=== PATIENT | male | born 1965 | race Caucasian/White ===

== ENCOUNTER 2020-05-25 03:45 | Emergency (ER) | payer MEDICAID, OTHER ==
[2020-05-25] MEDS ORDERED: Aspirin 81 MG Tab.Chew PO ONE (04:02)
[2020-05-25] MEDS ORDERED: Aspirin 81 MG Tab.Chew ONE (04:03)
[2020-05-25] MEDS ORDERED: Metoprolol Tartrate 50 MG Tab PO ONE (04:03)
--- NOTE | 2020-05-25 04:03 | EDM.PDOC ---
ED HPI GENERAL MEDICAL PROBLEM - General Chief Complaint: Chest Pain Stated Complaint: CHEST/JAW PAIN Time Seen by Provider: 05/25/20 04:01 Source of Information: Reports: Patient, RN History Limitations: Reports: Other (no old records) - History of Present Illness INITIAL COMMENTS - FREE TEXT/NARRATIVE: 54 yo male here with almost 7 hrs of chest pain associated with some nausea and some shortness of breath. He has no personal hx of CAD, but does have a pHx of hyperlipidemia and AODM. FHx is + for heart dz. Admits he had been noncompliant with his statin until his last doctor's office. He quit smoking over 30 yrs ago. Some radiation to his proximal L arm. Is here with his . He denies a pHx of HTN. He thought his sxs' were due to indigestion, but didn't take any antacids. He did take some ibuprofen. Onset: Gradual Onset Date: 05/24/20 Duration: Hour(s):, Getting Worse Location: Reports: Chest, Upper Extremity, Left Quality: Reports: Burning Severity: Moderate Improves with: Reports: None Worsens with: Reports: Other (unknown) Context: Reports: Other (See HPI) Associated Symptoms: Reports: Chest Pain, Diaphoresis, Nausea/Vomiting, Shortness of Breath. 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 Denies: Dyspnea on Exertion, Edema Endocrine: Reports: No Symptoms GI/Abdominal: Reports: Nausea. Denies: Abdominal Pain : Reports: No Symptoms Musculoskeletal: Reports: No Symptoms Skin: Reports: No Symptoms Neurological: Reports: No Symptoms ED EXAM, GENERAL - Physical Exam Exam: See Below Exam Limited By: No Limitations General Appearance: Alert, WD/WN, No Apparent Distress Eye Exam: Bilateral Eye: Normal Inspection, PERRL Ears: Normal External Exam, Normal Canal, Hearing Grossly Normal, Normal TMs Nose: Normal Inspection, No Blood Throat/Mouth: Normal Inspection, Normal Lips, Normal Oropharynx, Normal Voice, No Airway Compromise Head: Atraumatic, Normocephalic Neck: Normal Inspection Respiratory/Chest: No Respiratory Distress, Lungs Clear, Normal Breath Sounds, No Accessory Muscle Use Cardiovascular: Regular Rate, Rhythm, No Edema GI/Abdominal: Normal Bowel Sounds, Soft, Non-Tender, No Distention Back Exam: Normal Inspection Extremities: Normal Inspection, Normal Range of Motion, Non-Tender, No Pedal Edema Neurological: Alert, Oriented, CN II-XII Intact, Normal Cognition, No Motor/Sensory Deficits Psychiatric: Normal Affect, Normal Mood Skin Exam: Warm, Dry, Intact, Normal Color, No Rash #1 Interpretation EKG Date: 05/25/20 Time: 03:50 Rhythm: NSR Rate (Beats/Min): 90 [place]: Normal P-Wave: Present QRS: LBBB ST-T: Depressed (II, III, AVF slight depression) QT: Normal Comparison: NA - No Prior EKG #2 Interpretation EKG Date: 05/25/20 Time: 04:30 Rhythm: NSR Rate (Beats/Min): 85 [place]: Normal P-Wave: Present QRS: LBBB ST-T: Normal QT: Normal Comparison: No Change Course - Vital Signs Text/Narrative:: Accepted in transfer by Dr. Jensen @ [facility] @ [id number] Last Recorded V/S: Last Vital Signs Temp 36.6 C 05/25/20 03:51 Pulse 80 05/25/20 04:27 Resp 16 05/25/20 04:27 BP 125/72 05/25/20 04:27 Pulse Ox 96 05/25/20 04:27 - Orders/Labs/Meds Orders: Active Orders 24 hr Category Date Time Status Cardiac Monitoring [RC] .As Directed Care 05/25/20 04:00 Active EKG Documentation Completion [RC] ASDIRECTED Care 05/25/20 04:00 Active EKG Documentation Completion [RC] ASDIRECTED Care 05/25/20 04:30 Active UA W/MICROSCOPIC [URIN] Stat Lab 05/25/20 04:48 Ordered Dextrose 50% in Water Med 05/25/20 04:50 Ordered 50 ml IVPUSH ASDIRECTED PRN Glucagon,Human Recombinant [GlucaGen] Med 05/25/20 04:50 Ordered 1 mg IM ASDIRECTED PRN Heparin Sodium/D5W [Heparin 25,000 Units in D5W 500 ML] Med 05/25/20 04:45 Active 25,000 units in 500 ml IV TITRATE Insulin Regular, Human [HumuLIN R] Med 05/25/20 04:50 Once 12 unit SUBCUT ONETIME ONE Sodium Chloride 0.9% [Saline Flush] Med 05/25/20 04:29 Active 10 ml FLUSH ASDIRECTED PRN Saline Lock Insert [OM.PC] Routine Oth 05/25/20 04:29 Ordered EKG 12 Lead [EK] Routine Ther 05/25/20 04:00 Ordered EKG 12 Lead [EK] Routine Ther 05/25/20 04:29 Ordered Medication Orders Heparin Sodium/Dextrose (Heparin 25,000 Units In D5w 500 Ml) 25,000 units in 500 mls @ 20 mls/hr IV TITRATE TOMA Sodium Chloride (Saline Flush) 10 ml FLUSH ASDIRECTED PRN PRN Reason: Keep Vein Open Last Admin: 05/25/20 04:41 Dose: 10 ml Documented by: SHARYN Labs: Laboratory Tests 05/25/20 05/25/20 Range/Units 04:09 04:09 WBC 10.5 (4.5-11.0) K/uL RBC 5.47 (4.30-5.90) M/uL Hgb 15.5 H (12.0-15.0) g/dL Hct 44.8 (40.0-54.0) % MCV 82 (80-98) fL MCH 28 (27-31) pg MCHC 35 (32-36) % Plt Count 199 (150-400) K/uL Sodium 127 L (140-148) mmol/L Potassium 4.4 (3.6-5.2) mmol/L Chloride 94 L (100-108) mmol/L Carbon Dioxide 24 (21-32) mmol/L Anion Gap 13.4 (5.0-14.0) mmol/L BUN 16 (7-18) mg/dL Creatinine 1.4 H (0.8-1.3) mg/dL Est Cr Clr Drug Dosing 57.05 mL/min Estimated GFR (MDRD) 53 L (>60) Glucose 346 H (74-106) mg/dL Calcium 8.5 (8.5-10.1) mg/dL Troponin I 0.815 H* (0.000-0.056) ng/mL Meds: Medications Generic Name Dose Route Start Last Admin Trade Name Freq PRN Reason Stop Dose Admin Heparin Sodium/Dextrose 25,000 units in 500 mls @ 20 mls/hr 05/25/20 04:45 Heparin 25,000 Units In D5w 500 Ml IV TITRATE TOMA 1,000 UNITS/HR Sodium Chloride 10 ml 05/25/20 04:29 05/25/20 04:41 Saline Flush FLUSH 10 ml ASDIRECTED PRN Administration Keep Vein Open Discontinued Medications Generic Name Dose Route Start Last Admin Trade Name Freq PRN Reason Stop Dose Admin Aspirin 324 mg 05/25/20 04:02 05/25/20 04:05 Aspirin PO 05/25/20 04:03 324 mg ONETIME ONE Administration Aspirin Confirm 05/25/20 04:03 05/25/20 04:12 Aspirin Administered 05/25/20 04:04 Not Given Dose 324 mg .ROUTE .STK-MED ONE Heparin Sodium (Porcine) 4,000 units 05/25/20 04:40 Heparin Sodium IVPUSH 05/25/20 04:41 ONETIME ONE Metoprolol Tartrate 50 mg 05/25/20 04:03 05/25/20 04:06 Lopressor PO 05/25/20 04:04 50 mg ONETIME ONE Administration Nitroglycerin 0.4 mg 05/25/20 04:08 05/25/20 04:13 Nitrostat SL 05/25/20 04:09 0.4 mg ONETIME ONE Administration Nitroglycerin 0.4 mg 05/25/20 04:22 05/25/20 04:24 Nitrostat SL 05/25/20 04:23 0.4 mg ONETIME ONE Administration Nitroglycerin 1 gm 05/25/20 04:30 05/25/20 04:41 Nitro-Bid 2% TOP 05/25/20 04:31 1 gm ONETIME ONE Administration Ticagrelor 180 mg 05/25/20 04:27 05/25/20 04:33 Brilinta PO 05/25/20 04:28 180 mg ONETIME ONE Administration - Re-Assessments/Exams Free Text/Narrative Re-Assessment/Exam: 05/25/20 04:30 pain reduced after first NTG, now almost gone after 2nd NTG. Departure - Departure Time of Disposition: 05:15 Disposition: DC/Tfer to Acute Hospital 02 Reason for Transfer *Q: Other Condition: Serious Clinical Impression: Non-STEMI (non-ST elevated myocardial infarction), Elevated blood sugar Referrals: Grupo Telles MD [Primary Care Provider] - Forms: ED Department Discharge Sepsis Event Note (ED) - Evaluation Sepsis Screening Result: No Definite Risk - Focused Exam Vital Signs: Vital Signs Temp Pulse Pulse Resp BP BP Pulse Ox 05/25/20 04:27 80 16 125/72 96 05/25/20 04:24 127/79 05/25/20 04:17 88 19 127/79 96 05/25/20 04:16 84 20 138/73 98 05/25/20 04:13 149/76 H 05/25/20 04:06 93 149/76 H 05/25/20 03:51 36.6 C 88 14 149/76 H 100 - My Orders Last 24 Hours: My Active Orders 05/25/20 04:00 Cardiac Monitoring [RC] .As Directed EKG Documentation Completion [RC] ASDIRECTED EKG 12 Lead [EK] Routine 05/25/20 04:29 Sodium Chloride 0.9% [Saline Flush] 10 ml FLUSH ASDIRECTED PRN Saline Lock Insert [OM.PC] Routine EKG 12 Lead [EK] Routine 05/25/20 04:30 EKG Documentation Completion [RC] ASDIRECTED 05/25/20 04:45 Heparin Sodium/D5W [Heparin 25,000 Units in D5W 500 ML] 25,000 units in 500 ml IV TITRATE 05/25/20 04:48 UA W/MICROSCOPIC [URIN] Stat 05/25/20 04:50 Dextrose 50% in Water 50 ml IVPUSH ASDIRECTED PRN Glucagon,Human Recombinant [GlucaGen] 1 mg IM ASDIRECTED PRN Insulin Regular, Human [HumuLIN R] 12 unit SUBCUT ONETIME ONE - Assessment/Plan Last 24 Hours: My Active Orders 05/25/20 04:00 Cardiac Monitoring [RC] .As Directed EKG Documentation Completion [RC] ASDIRECTED EKG 12 Lead [EK] Routine 05/25/20 04:29 Sodium Chloride 0.9% [Saline Flush] 10 ml FLUSH ASDIRECTED PRN Saline Lock Insert [OM.PC] Routine EKG 12 Lead [EK] Routine 05/25/20 04:30 EKG Documentation Completion [RC] ASDIRECTED 05/25/20 04:45 Heparin Sodium/D5W [Heparin 25,000 Units in D5W 500 ML] 25,000 units in 500 ml IV TITRATE 05/25/20 04:48 UA W/MICROSCOPIC [URIN] Stat 05/25/20 04:50 Dextrose 50% in Water 50 ml IVPUSH ASDIRECTED PRN Glucagon,Human Recombinant [GlucaGen] 1 mg IM ASDIRECTED PRN Insulin Regular, Human [HumuLIN R] 12 unit SUBCUT ONETIME ONE
[2020-05-25] MEDS ORDERED: Nitroglycerin 0.4 MG Tab.SL SL ONE ×2 (04:08→04:22)
[2020-05-25] MEDS ORDERED: Ticagrelor 90 MG Tab PO ONE (04:27)
[2020-05-25] MEDS ORDERED: Sodium Chloride 0.9% 10 ML Syringe FLUSH PRN (04:29)
[2020-05-25] MEDS ORDERED: Nitroglycerin 2% Oint 1 GM UD Packet TOP ONE (04:30)
[2020-05-25] MEDS ORDERED: Heparin Sodium 5,000 Units/ML Vial IVPUSH ONE (04:40)
[2020-05-25] MEDS ORDERED: Heparin Sodium/D5W 25,000 UNITS/500 ML BAG IV SCH (04:45)
[2020-05-25] MEDS ORDERED: Glucagon,Human Recombinant 1 MG Vial IM PRN (04:50)
[2020-05-25] MEDS ORDERED: Insulin Regular, Human 100 Units/ML 3 ML Vial SUBCUT ONE (04:50)
[2020-05-25] MEDS ORDERED: 50% Dextrose in Water 50 ML Syringe IVPUSH PRN (04:50)
[2020-05-25] MEDS ORDERED: Sodium Chloride 0.9% 1,000 ML IV SCH (05:00)
== END 2020-05-25 05:51 ==
LOC: JP.ED 03:45
DX: I21.4 Non-ST elevation (NSTEMI) myocardial infarction (principal); E11.65 Type 2 diabetes mellitus with hyperglycemia; E78.5 Hyperlipidemia, unspecified; Z79.899 Other long term (current) drug therapy
CPT/HCPCS: 36415; 80048; 81001; 84484; 85027; 93005; 96374; 96375; 99285; A9270; J1644; J1815; J7030

== ENCOUNTER 2020-07-28 08:52 | Emergency (ER) | payer OTHER ==
[2020-07-28] MEDS ORDERED: Aspirin 81 MG Tab.EC PO ONE (08:59)
[2020-07-28] MEDS ORDERED: Aspirin 81 MG Tab.Chew ONE (09:02)
[2020-07-28] MEDS ORDERED: Aspirin 81 MG Tab.Chew PO ONE (09:12)
--- NOTE | 2020-07-28 09:31 | EDM.PDOC ---
ED HPI GENERAL MEDICAL PROBLEM - General Chief Complaint: Chest Pain Stated Complaint: HEART PAIN Time Seen by Provider: 07/28/20 09:00 Source of Information: Reports: Patient, Family History Limitations: Reports: No Limitations - History of Present Illness INITIAL COMMENTS - FREE TEXT/NARRATIVE: 54-year-old male who was found to have a non-STEMI 2 months ago and received 1 stent, has been doing well over the past 2 months and just finished cardiac rehab last week without incident. He is under a lot of stress right now and over the last 24 hours he has felt pressure and tightness on the left aspect of his chest wall. Does not hurt with activity or position, does not hurt to breathe, no increase in physical activity and no radiation of pain. It just concerned him and he wanted it checked. Onset: Sudden (Started fairly suddenly 24 hours ago) Location: Reports: Chest (Left chest wall) Associated Symptoms: Reports: No Other Symptoms Chest Pain Score (Numeric/FACES): 3 - Related Data Allergies Allergy/AdvReac Type Severity Reaction Status Date / Time No Known Allergies Allergy Verified 07/28/20 09:07 Home Meds: Home Meds atorvaSTATin [Lipitor] 20 mg PO BEDTIME 05/25/20 [History] glipiZIDE [Glucotrol] 5 mg PO BID 05/25/20 [History] Aspirin 81 mg PO DAILY 07/28/20 [History] Nitroglycerin 0.4 mg PO ASDIRECTED 07/28/20 [History] Pantoprazole [ProTONIX] 40 mg PO BEDTIME 07/28/20 [History] Ticagrelor [Brilinta] 90 mg PO BID 07/28/20 [History] carvediloL [Carvedilol] 3.125 mg PO DAILY 07/28/20 [History] lisinopriL [Prinivil] 2.5 mg PO DAILY 07/28/20 [History] Past Medical History HEENT History: Reports: Other (See Below) Other HEENT History: hx ruptured ear drum Cardiovascular History: Reports: High Cholesterol, [place], Other (See Below) Other Cardiovascular History: "skips a beat" Musculoskeletal History: Reports: Fracture Endocrine/Metabolic History: Reports: Diabetes, Type II - Past Surgical History HEENT Surgical History: Reports: Tonsillectomy Cardiovascular Surgical History: Reports: Coronary Artery Stent Social & Family History - Tobacco Use Tobacco Use Status *Q: Never Tobacco User - Caffeine Use Caffeine Use: Reports: None - Recreational Drug Use Recreational Drug Use: No ED ROS GENERAL - Review of Systems Review Of Systems: See Below Constitutional: Denies: Fever, Chills HEENT: Reports: No Symptoms Respiratory: Denies: Shortness of Breath, Pleuritic Chest Pain, Cough Cardiovascular: Reports: Chest Pain (As described in HPI). Denies: Palpitations GI/Abdominal: Reports: No Symptoms Skin: Reports: No Symptoms. Denies: Diaphoresis Neurological: Reports: No Symptoms Psychiatric: Reports: No Symptoms ED EXAM, GENERAL - Physical Exam Exam: See Below Exam Limited By: No Limitations General Appearance: Alert, No Apparent Distress Eye Exam: Bilateral Eye: Normal Inspection Head: Atraumatic Respiratory/Chest: No Respiratory Distress, Lungs Clear, Other (Patient does have localized tenderness to palpation over the left chest wall, pain increases with palpation) Cardiovascular: Regular Rate, Rhythm GI/Abdominal: Soft, Non-Tender Neurological: Alert, Oriented Psychiatric: Normal Affect, Normal Mood Skin Exam: Warm, Dry #1 Interpretation EKG Date: 07/28/20 Rhythm: NSR ST-T: Elevated (Slight anterior elevation consistent with previous EKGs, no acute changes) Course - Vital Signs Last Recorded V/S: Last Vital Signs Temp 97.4 F 07/28/20 09:04 Pulse 63 07/28/20 09:35 Resp 15 07/28/20 09:35 BP 105/57 L 07/28/20 09:35 Pulse Ox 100 07/28/20 09:35 - Orders/Labs/Meds Orders: Active Orders 24 hr Category Date Time Status EKG 12 Lead [EK] Routine Ther 07/28/20 09:12 Ordered Labs: Laboratory Tests 07/28/20 Range/Units 09:12 Troponin I < 0.017 (0.000-0.056) ng/mL Meds: Medications Discontinued Medications Generic Name Dose Route Start Last Admin Trade Name Brittni PRN Reason Stop Dose Admin Aspirin 243 mg 07/28/20 08:59 07/28/20 09:13 Halfprin PO 07/28/20 09:00 Not Given ONETIME ONE Aspirin Confirm 07/28/20 09:02 07/28/20 09:12 Aspirin Administered 07/28/20 09:03 243 mg Dose Administration 243 mg .ROUTE .STK-MED ONE Aspirin 243 mg 07/28/20 09:12 Aspirin PO 07/28/20 09:13 ONETIME ONE - Re-Assessments/Exams Free Text/Narrative Re-Assessment/Exam: 07/28/20 09:31 EKG is nonspecific, patient took one low-dose aspirin prior to coming in so was given an additional 3 aspirin. He had no pain to treat with pain medication or nitroglycerin unless the left chest wall was palpated. A troponin was drawn for completeness. 07/28/20 09:57 Patient developed no further discomfort while in the emergency room unless the left chest wall was palpated. Troponin is 0. He was discharged with diagnosis of chest wall pain. Departure - Departure Time of Disposition: 10:34 Disposition: Home, Self-Care 01 Clinical Impression: Left-sided chest wall pain - Discharge Information Instructions: Chest Wall Pain, [id number] Referrals: Grupo Telles MD [Primary Care Provider] - Forms: ED Department Discharge Care Plan Goals: Tylenol may be helpful, heating pad may also be beneficial and increase activity as tolerated. Return if worsening such as shortness of breath, fever, persistent worsening pain or other concerns. Sepsis Event Note (ED) - Evaluation Sepsis Screening Result: No Definite Risk - Focused Exam Vital Signs: Vital Signs Temp Pulse Resp BP Pulse Ox 07/28/20 09:35 63 15 105/57 L 100 07/28/20 09:04 97.4 F 62 16 108/65 100 - My Orders Last 24 Hours: My Active Orders 07/28/20 09:12 EKG 12 Lead [EK] Routine - Assessment/Plan Last 24 Hours: My Active Orders 07/28/20 09:12 EKG 12 Lead [EK] Routine
== END 2020-07-28 10:34 | disposition home or self-care (01) ==
LOC: JP.ED 08:52
DX: R07.89 Other chest pain (principal); E78.00 Pure hypercholesterolemia, unspecified; I25.2 Old myocardial infarction; E11.9 Type 2 diabetes mellitus without complications; Z79.82 Long term (current) use of aspirin; Z79.84 Long term (current) use of oral hypoglycemic drugs; Z79.899 Other long term (current) drug therapy; Z95.5 Presence of coronary angioplasty implant and graft
CPT/HCPCS: 36415; 84484; 93005; 93010; 99283; 99285-25; A9270-GY

== ENCOUNTER 2022-02-04 14:33 | Emergency (ER) | payer OTHER, SELFPAY | END 2022-02-04 16:10 | disposition home or self-care (01) | LOC: JP.ED 14:33 | DX: T78.40XA Allergy, unspecified, initial encounter (principal); E78.00 Pure hypercholesterolemia, unspecified; I25.2 Old myocardial infarction; E11.9 Type 2 diabetes mellitus without complications; Z88.0 Allergy status to penicillin; Z79.899 Other long term (current) drug therapy; Z79.82 Long term (current) use of aspirin; W57.XXXA Bitten or stung by nonvenomous insect and other nonvenomous arthropods, initial encounter | CPT/HCPCS: 99281 ==

== ENCOUNTER 2022-06-24 09:45 | Emergency (ER) | payer OTHER ==
[2022-06-24] MEDS ORDERED: Sodium Chloride 0.9% 10 ML Syringe FLUSH PRN (09:52)
[2022-06-24] MEDS ORDERED: Aspirin 81 MG Tab.Chew PO ONE (09:57)
[2022-06-24 11:06] LABS: ESTIMATED GFR 71 mL/min (>60)
== END 2022-06-24 11:39 | disposition home or self-care (01) ==
LOC: JP.ED 09:45
DX: I25.10 Atherosclerotic heart disease of native coronary artery without angina pectoris (principal); E11.9 Type 2 diabetes mellitus without complications; E78.00 Pure hypercholesterolemia, unspecified; I25.2 Old myocardial infarction; Z88.0 Allergy status to penicillin; Z79.899 Other long term (current) drug therapy; Z79.82 Long term (current) use of aspirin; Z79.84 Long term (current) use of oral hypoglycemic drugs; Z79.02 Long term (current) use of antithrombotics/antiplatelets
CPT/HCPCS: 36415; 71045; 80048; 84484; 85025; 99285; A9270

== ENCOUNTER 2023-08-08 22:55 | Emergency (ER) | payer OTHER ==
[2023-08-08] MEDS ORDERED: Lidocaine 1% with EPINEPHrine 1:100,000 50 ML MDV INJECT ONE (23:33)
[2023-08-09] MEDS ORDERED: Bacitracin Oint 1 GM U/D Packet TOP ONE (00:04)
[2023-08-09] MEDS ORDERED: Bacitracin Oint 1 GM U/D Packet ONE (00:05)
== END 2023-08-09 00:23 | disposition home or self-care (01) ==
LOC: JP.ED 22:55
DX: S61.411A Laceration without foreign body of right hand, initial encounter (principal); I10 Essential (primary) hypertension; E78.00 Pure hypercholesterolemia, unspecified; I25.2 Old myocardial infarction; Z95.5 Presence of coronary angioplasty implant and graft; Z79.82 Long term (current) use of aspirin; Z88.0 Allergy status to penicillin; W23.1XXA Caught, crushed, jammed, or pinched between stationary objects, initial encounter
CPT/HCPCS: 12001; 99282; 99283